=== PATIENT | female | born 1970 | race Caucasian/White ===

== ENCOUNTER → 2018-02-16 | Outpatient (CLI) | payer OTHER ==
[~2018-02-16] MED LIST: ESTR0.5T PO; HYDR-3307 PO; NITR100C56 PO; TRAM50TA2 PO; VILA40TA PO
[2018-02-16 09:12] LABS: INTERNATIONAL NORMALIZED RATIO 0.93 (0.93-1.1); PROTHROMBIN TIME 9.6 Seconds (9.6-11.5)
[2018-02-16 09:13] LABS: ANION GAP 7 mmol/L (5-15); CALCIUM 8.6 mg/dL (8.5-10.1); CHLORIDE 104 mmol/L (98-107); CREATININE 1.07 mg/dL (0.55-1.02)
[2018-02-16 09:26] LABS: BASOPHILS # (AUTO) 0.08 x10^3/uL (0-0.1); BASOPHILS % (AUTO) 1 % (0-1); EOSINOPHILS # (AUTO) 0.29 x10^3/uL (0-0.4); EOSINOPHILS % (AUTO) 5 % (1-7); LYMPHOCYTES # (AUTO) 1.69 x10^3/uL (1-3.4); LYMPHOCYTES % (AUTO) 28 % (22-44); MD NO; MEAN CORPUSCULAR HEMOGLOBIN 29.3 pg (27.0-34.8); MEAN CORPUSCULAR HGB CONC 33.3 g/dL (32.4-35.8); MEAN PLATELET VOLUME 8.6 fL (7.4-10.4); MONOCYTES # (AUTO) 0.45 x10^3/uL (0.2-0.8); MONOCYTES % (AUTO) 7 % (2-9); NEUTROPHILS # (AUTO) 3.65 x10^3/uL (1.8-6.8); NEUTROPHILS % (AUTO) 59 % (42-75); PLATELET COUNT 308 x10^3/uL (130-400); RED BLOOD COUNT 4.76 x10^6/uL (3.82-5.3); RED CELL DISTRIBUTION WIDTH 13.3 % (9.6-15.2)
[2018-02-16 10:14] LABS: MICROSCOPIC NOT IND
[2018-02-16 10:28] LABS: CULTURE INDICATED? NO
== END | disposition home or self-care (01) ==
LOC: STAR 08:10
PROVIDERS: ATTEND Neurological Surgery
DX: Z01.818 Encounter for other preprocedural examination (principal); Z87.891 Personal history of nicotine dependence
CPT/HCPCS: 36415; 71046; 80048; 81003; 85025; 85610; 85730; 93005

== ENCOUNTER 2018-02-20 14:03 | Day surgery (SDC) | payer OTHER ==
[~2018-02-20] VITALS: Ht 172.7 cm; Wt 76.7 kg
[~2018-02-20 14:03] MED LIST changes: +BACITRACIN 50,000 UNIT ONE; +BUPIVACAINE/PF-EPI 0.25% 1:200K ONE; +THROMBIN 5,000 UNIT VIAL TP ONE
[2018-02-20] MEDS ORDERED: LACTATED RINGERS 1,000 ML IV SCH (14:13)
[2018-02-20] MEDS ORDERED: GABAPENTIN 300 MG CAPSULE PO ONE (14:30)
[2018-02-20] MEDS ORDERED: ACETAMINOPHEN 500 MG TABLET PO ONE (14:30)
[2018-02-20] MEDS ORDERED: NEOSTIGMINE 1 MG/ML, 10ML ONE (15:26)
[2018-02-20] MEDS ORDERED: CEFAZOLIN 1,000 MG ONE ×2 (15:26→16:31)
[2018-02-20] MEDS ORDERED: ONDANSETRON 2MG/ML, 2ML ONE (15:26)
[2018-02-20] MEDS ORDERED: PROPOFOL 10 MG/ML, 20ML ONE (15:26)
[2018-02-20] MEDS ORDERED: DEXAMETHASONE 4 MG/ML, 1ML ONE (15:26)
[2018-02-20] MEDS ORDERED: SUCCINYLCHOLINE 20 MG/ML, 10ML ONE (15:26)
[2018-02-20] MEDS ORDERED: ROCURONIUM 10MG/ML,5ML ONE (15:26)
[2018-02-20] MEDS ORDERED: FENTANYL PF 250 MCG/5ML ONE (15:26)
[2018-02-20] MEDS ORDERED: DIPHENHYDRAMINE 50 MG/ML, 1ML IVPush PRN (15:30)
[2018-02-20] MEDS ORDERED: ONDANSETRON 2MG/ML, 2ML IV PRN (15:30)
[2018-02-20] MEDS ORDERED: HYDROmorphone 1 MG/ML, 1ML IV PRN (15:30)
[2018-02-20] MEDS ORDERED: PROMETHAZINE 25 MG/ML, 1ML IV PRN (15:30)
[2018-02-20] MEDS ORDERED: OXYcodone 5 MG/5 ML ORAL.SOL UDC PO PRN (15:30)
[2018-02-20] MEDS ORDERED: LABETALOL 5MG/ML, 20ML IV PRN (15:30)
[2018-02-20] MEDS ORDERED: PROCHLORPERAZINE 5 MG/ML, 2ML IV PRN (15:30)
[2018-02-20] MEDS ORDERED: MIDAZOLAM 1 MG/ML, 2ML ONE (16:25)
[2018-02-20] MEDS ORDERED: GLYCOPYRROLATE 0.2MG/1ML, 5ML ONE (16:31)
[2018-02-20] MEDS ORDERED: MEPERIDINE/PF 50 MG/ML ONE (17:48)
[2018-02-20] MEDS ORDERED: OXYcodone 5 MG/5 ML ORAL.SOL UDC ONE (17:49)
[2018-02-20] MEDS: MEPERIDINE/PF 25MG/0.5ML IVPush PRN (17:50)
[2018-02-20] MEDS ORDERED: METH750T2 PO (17:50)
[2018-02-20] MEDS: FENTANYL PF 100 MCG/2ML IV PRN ×2 (18:00→18:10)
[2018-02-20] MEDS ORDERED: FENTANYL PF 100 MCG/2ML ONE (18:12)
[2018-02-20 19:08] VITALS: BP 121/77
[2018-02-20] MEDS ORDERED: METHOCARBAMOL 750 MG TABLET PO PRN (20:00)
== END 2018-02-20 21:30 | disposition home or self-care (01) ==
LOC: OR 14:03 → 4NOR 18:52 → OR 21:30
PROVIDERS: ATTEND Neurological Surgery
DX: M51.17 Intervertebral disc disorders with radiculopathy, lumbosacral region (principal); F41.9 Anxiety disorder, unspecified; F32.9 Major depressive disorder, single episode, unspecified; Z79.899 Other long term (current) drug therapy; Z98.890 Other specified postprocedural states
CPT/HCPCS: 63030; 72100; J0330; J0690; J1100; J2175; J2250; J2405; J2704; J2710; J3010; J3490; J7120; G0378